=== PATIENT | female | born 1980 | race Caucasian/White ===

== ENCOUNTER 2020-04-18 18:30 | Observation (INO) ==
[2020-04-18] MEDS ORDERED: Orphenadrine 60 MG/2 ML VIAL IVP ONE (19:36)
[2020-04-18] MEDS ORDERED: *HR* HYDROmorphone (PF) 1 MG/ML SYRINGE IVP ONE ×2 (19:36→21:21)
[2020-04-18 19:50] LABS: Basophils # 0.1 K/mcL (0.0-0.2); Basophils % 0.7 %; Eosinophils # 0.1 K/mcL (0.0-0.6); Eosinophils % 1.5 %; Hematocrit 36.9 % (35.3-44.9); Immature Granulocytes % 0.2 % (0-4); Lymphocytes % 35.2 %; Mean Corpuscular HGB Conc 32.5 g/dL (31.6-35.5); Mean Corpuscular Hemoglobin 29.3 pg (28.0-33.3); Mean Corpuscular Volume 90.2 fL (83.0-100.0); Mean Platelet Volume 9.5 fL (9.4-12.4); Monocytes # 0.8 K/mcL (0.0-1.3); Monocytes % 9.5 %; Neutrophils # 4.5 K/mcL (1.6-8.9); Platelet Count 375 K/mcL (140-400); Red Blood Count 4.09 M/mcL (3.82-4.97); Segmented Neutrophils % 52.9 %; White Blood Count 8.5 K/mcL (4.3-11.1)
[2020-04-18 20:09] LABS: Alanine Aminotransferase 43 Units/L (7-52); Albumin 4.2 g/dL (3.5-5.7); Albumin/Globulin Ratio 1.3 (1.1-2.2); Alkaline Phosphatase 103 Units/L (34-104); Aspartate Amino Transferase 21 Units/L (13-39); BUN/Creatinine Ratio 14 (6-26); Bilirubin,Total 0.3 mg/dL (0.3-1.0); Blood Urea Nitrogen 11 mg/dL (6-20); Carbon Dioxide 27 mEq/L (23-29); Chloride 103 mEq/L (98-107); Globulin 3.2 g/dL (2.4-3.5); Glucose 107 mg/dL (70-105); Osmolality,Calculated 284 (280-300); Sodium 137 mEq/L (136-145); Total Protein 7.4 g/dL (6.4-8.9); eGFR For African Americans > 60 (> 60); eGFR For Non-African Americans > 60 (> 60)
[2020-04-18] MEDS ORDERED: diazePAM 10 MG TABLET PO PRN (22:22)
[2020-04-18] MEDS: *HR* OxyCODONE Immed Rel 5 MG TABLET PO PRN (23:20)
[2020-04-19] MEDS ORDERED: *HR* HYDROmorphone (PF) 1 MG/ML SYRINGE IVP ONE (02:59)
[2020-04-19] MEDS ORDERED: Isovue-370 500 ML BOTTLE IVP ONE (03:05)
[2020-04-19] MEDS ORDERED: Orphenadrine 60 MG/2 ML VIAL IVP ONE (03:45)
[2020-04-19 05:11] LABS: Basophils % 0.5 %; Eosinophils # 0.1 K/mcL (0.0-0.6); Eosinophils % 1.6 %; Hematocrit 34.9 % (35.3-44.9); Hemoglobin 11.6 g/dL (11.5-15.4); Immature Granulocytes % 0.3 % (0-4); Lymphocytes # 2.8 K/mcL (0.6-4.6); Lymphocytes % 37.3 %; Mean Corpuscular HGB Conc 33.2 g/dL (31.6-35.5); Mean Corpuscular Hemoglobin 30.1 pg (28.0-33.3); Mean Corpuscular Volume 90.6 fL (83.0-100.0); Mean Platelet Volume 9.6 fL (9.4-12.4); Monocytes # 0.7 K/mcL (0.0-1.3); Neutrophils # 3.8 K/mcL (1.6-8.9); Platelet Count 359 K/mcL (140-400); Red Blood Count 3.85 M/mcL (3.82-4.97); Red Cell Distribution Width 11.9 % (11.5-14.5); Segmented Neutrophils % 51.3 %; White Blood Count 7.5 K/mcL (4.3-11.1)
[2020-04-19 05:24] LABS: BUN/Creatinine Ratio 15 (6-26); Blood Urea Nitrogen 11 mg/dL (6-20); C-Reactive Protein 19 mg/L (Less than 10); Carbon Dioxide 26 mEq/L (23-29); Chloride 101 mEq/L (98-107); Glucose 97 mg/dL (70-105); Osmolality,Calculated 277 (280-300); Sodium 134 mEq/L (136-145); eGFR For African Americans > 60 (> 60); eGFR For Non-African Americans > 60 (> 60)
[2020-04-19] MEDS: *HR* OxyCODONE Immed Rel 5 MG TABLET PO PRN (08:25)
[2020-04-19] MEDS ORDERED: Thyroid (Amour) 30 MG TABLET PO SCH (09:00)
[2020-04-19] MEDS ORDERED: Gabapentin 400 MG CAPSULE PO SCH (09:00)
[2020-04-19] MEDS ORDERED: Bacitracin 50,000 UNIT, Polymyxin B Sulfate 500,000 UNIT, Sodium Chloride IRRigation 1,... IR ONE (12:00)
[2020-04-19 12:34] LABS: Adenovirus Not Detected (Not Detect); Bordetella Pertussis Not Detected (Not Detect); Chlamydophila pneumoniae Not Detected (Not Detect); Coronavirus 229E Not Detected (Not Detect); Coronavirus HKU1 Not Detected (Not Detect); Coronavirus NL63 Not Detected (Not Detect); Coronavirus OC43 Not Detected (Not Detect); Human Metapneumovirus Not Detected (Not Detect); Human Rhinovirus/Enterovirus Not Detected (Not Detect); Influenza A Subtype 2009 H1 Not Detected (Not Detect); Influenza B Not Detected (Not Detect); Mycoplasma pneumoniae Not Detected (Not Detect); Parainfluenza Virus 1 Not Detected (Not Detect); Parainfluenza Virus 2 Not Detected (Not Detect); Parainfluenza Virus 3 Not Detected (Not Detect); Parainfluenza Virus 4 Not Detected (Not Detect); Respiratory Syncytial Virus Not Detected (Not Detect); SARS-CoV-2 Not Detected (Not Detect)
[2020-04-19] MEDS ORDERED: *HR* Propofol 200 MG/20 ML VIAL IVP ONE ×2 (13:31→15:05)
[2020-04-19] MEDS ORDERED: *HR* Midazolam HCl 2 MG/2 ML VIAL ONE (13:31)
[2020-04-19] MEDS ORDERED: *HR* FentaNYL (PF) 100 MCG/2 ML VIAL ONE (13:31)
[2020-04-19] MEDS ORDERED: *HR* Remifentanil 1 MG VIAL IVP ONE (13:33)
[2020-04-19] MEDS ORDERED: Ondansetron 4 MG/2 ML VIAL IVP PRN ×2 (14:15→18:16)
[2020-04-19] MEDS ORDERED: *HR* HYDROmorphone PF 0.5 MG/0.5 ML SYRINGE IVP PRN (14:15)
[2020-04-19] MEDS ORDERED: *HR* OxyCODONE Immed Rel 5 MG TABLET PO PRN ×2 (14:15→18:16)
[2020-04-19] MEDS ORDERED: Ringers Solution, Lactated 1,000 ML IVC SCH ×2 (14:15→18:16)
[2020-04-19] MEDS ORDERED: *HR* Phenylephrine 10 MG/ML VIAL ONE (14:42)
[2020-04-19] MEDS ORDERED: Clindamycin 900 MG/50 ML 900 MG/50 ML IV.SOLN IVPB ONE (14:50)
[2020-04-19] MEDS ORDERED: Dexamethasone 4 MG/ML VIAL ONE (15:19)
[2020-04-19] MEDS ORDERED: *HR* PHENYLEPHRINE 1,000 MCG/10 ML SYRINGE IVP ONE (16:02)
[2020-04-19] MEDS ORDERED: *HR* HYDROMORPHONE 2 MG/ML VIAL ONE (16:43)
[2020-04-19] MEDS ORDERED: Ondansetron 4 MG/2 ML VIAL ONE (16:44)
[2020-04-19] MEDS ORDERED: ACETAMINOPHEN 650 MG PO PRN (18:16)
[2020-04-19] MEDS ORDERED: ALPRAZolam 1 MG TABLET PO PRN (18:16)
[2020-04-19] MEDS ORDERED: Naloxone 0.4 MG/ML INJ IVP PRN (18:16)
[2020-04-19] MEDS ORDERED: Acetaminophen 325 MG TABLET PO PRN (18:16)
[2020-04-19] MEDS: Gabapentin 400 MG CAPSULE PO SCH (19:38)
[2020-04-19] MEDS ORDERED: ARIPiprazole 5 MG TABLET PO SCH (21:00)
[2020-04-19 22:01] LABS: Acinetobacter baumannii by PCR Not Detected (Not Detect); Candida albicans by PCR Not Detected (Not Detect); Candida glabrata by PCR Not Detected (Not Detect); Candida krusei by PCR Not Detected (Not Detect); Candida parapsilosis by PCR Not Detected (Not Detect); Candida tropicalis by PCR Not Detected (Not Detect); Enterobacter cloacae Cmplx PCR Not Detected (Not Detect); Enterobacteriaceae by PCR Not Detected (Not Detect); Enterococcus by PCR Not Detected (Not Detect); Escherichia coli by PCR Not Detected (Not Detect); Klebsiella oxytoca by PCR Not Detected (Not Detect); Klebsiella pneumoniae by PCR Not Detected (Not Detect); Proteus by PCR Not Detected (Not Detect); Pseudomonas aeruginosa by PCR Not Detected (Not Detect); Serratia marcescens by PCR Not Detected (Not Detect); Staphylococcus aureus by PCR Not Detected (Not Detect); Staphylococcus by PCR Not Detected (Not Detect); Streptococcus agalactiae(B)PCR Not Detected (Not Detect); Streptococcus by PCR DETECTED (Not Detect); Streptococcus pneumoniae PCR Not Detected (Not Detect); Streptococcus pyogenes (A) PCR Not Detected (Not Detect)
[2020-04-19] MEDS: Clindamycin 900 MG/50 ML 900 MG/50 ML IV.SOLN IVPB SCH (23:46)
[2020-04-20] MEDS: *HR* HYDROcodone/Acet 5/325 mg TABLET PO PRN ×2 (02:33→08:14)
[2020-04-20 05:06] LABS: Basophils % 0.1 %; Hematocrit 33.8 % (35.3-44.9); Hemoglobin 11.2 g/dL (11.5-15.4); Immature Granulocytes % 0.4 % (0-4); Lymphocytes # 0.7 K/mcL (0.6-4.6); Lymphocytes % 9.2 %; Mean Corpuscular HGB Conc 33.1 g/dL (31.6-35.5); Mean Corpuscular Hemoglobin 29.4 pg (28.0-33.3); Mean Corpuscular Volume 88.7 fL (83.0-100.0); Mean Platelet Volume 9.8 fL (9.4-12.4); Monocytes # 0.2 K/mcL (0.0-1.3); Neutrophils # 6.3 K/mcL (1.6-8.9); Platelet Count 367 K/mcL (140-400); Red Blood Count 3.81 M/mcL (3.82-4.97); Red Cell Distribution Width 11.6 % (11.5-14.5); Segmented Neutrophils % 87.3 %; White Blood Count 7.3 K/mcL (4.3-11.1)
[2020-04-20] MEDS ORDERED: Thyroid (Amour) 30 MG TABLET PO SCH (06:30)
[2020-04-20] MEDS: Gabapentin 400 MG CAPSULE PO SCH (08:14)
[2020-04-20] MEDS ORDERED: ARIPiprazole 5 MG TABLET PO SCH (09:00)
[2020-04-20] MEDS: Clindamycin 900 MG/50 ML 900 MG/50 ML IV.SOLN IVPB SCH (09:28)
[2020-04-20 10:44] VITALS: BP 114/70
== END 2020-04-20 11:42 | disposition home or self-care (01) ==
LOC: 3NENU 18:30 → EMEROOARM 18:30 → 3NENU 21:52
PROVIDERS: ADMIT Family Medicine; ATTEND Orthopaedic Surgery Orthopaedic Surgery of the Spine